=== PATIENT | female | born 1955 | race Caucasian/White ===

== ENCOUNTER → 2020-12-02 | Outpatient (CLI) | payer MEDICARE, OTHER ==
[2020-04-25 10:31] VITALS: BP 127/86
[~2020-12-02] MED LIST: FLUT16SP21 NS; FURO40TA4 PO; HYDR25TA PO; NIFE30TA15 PO; PANT40TA6 PO; POTA20TA4 PO; QUIN20TA17 PO
--- NOTE | 2020-12-02 15:50 | RAD ---
EXAM: XR SHOULDER_RIGHT 2+ VIEWS 12/02/2020 3:31 PM CLINICAL INDICATION: Right shoulder pain COMPARISON: None TECHNIQUE: 3 views of the right shoulder FINDINGS: No acute fracture. Alignment is normal. There is mild acromioclavicular degenerative joint disease. Chronic bony changes at the greater tuberosity suggests chronic rotator cuff pathology. The re is very mild glenohumeral degenerative joint disease with tiny humeral head osteophyte. Subacromia l space is maintained. No soft tissue calcifications. IMPRESSION: 1. No acute osseous abnormality. 2. Mild acromioclavicular and glenohumeral osteoarthrosis. 3. Bony changes in the greater tuberosity suggesting chronic rotator cuff pathology. Electronically signed by: Martina Ramos MD (12/02/2020 3:47 PM) [id number]
== END ==
LOC: RAD 15:23
PROVIDERS: ATTEND Nurse Practitioner Family
DX: M19.011 Primary osteoarthritis, right shoulder (principal)
CPT/HCPCS: 73030

== ENCOUNTER → 2020-12-17 | Outpatient (CLI) | payer OTHER ==
[2020-04-25 10:31] VITALS: BP 127/86
--- NOTE | 2020-12-17 13:42 | RAD ---
EXAM: Cervical spine, 3 views; thoracic spine, 4 views; lumbar spine, 3 views. HISTORY: Pain. COMPARISON: None. FINDINGS: Cervical spine: 3 views of the cervical spine are obtained. There is mild cervical kyphosis. There is 3 mm anterolisthesis of C4 on C5. There is degenerative endplate remodeling with disc space narrowin g and osteophytosis primarily at C5-C6 and C6-C7. There is multilevel facet arthropathy. There is no fracture. Thoracic spine: 4 views of the thoracic spine are obtained. There is multilevel endplate remodeling a nd anterior predominant spurring. There is no significant listhesis. There is no fracture. There are incidental cholecystectomy clips. There is an incidental left shoulder arthroplasty. Lumbar spine: 3 views of the lumbar spine are obtained. There is grade 1 anterolisthesis of L3 on L4, measuring 3 mm. There is grade 1 anterolisthesis of L4 on L5, measuring 5 mm. There is grade 1 anter olisthesis of L5 on S1, measuring 5 mm. There is multilevel endplate remodeling, primarily at L2-L3. There is disc space narrowing predominant L2-L3, L3-L4 and L5-S1. There is facet arthropathy predomin antly the lower lumbar levels. IMPRESSION: 1. Multilevel degenerative change throughout the spine, described in detail above. 2. Cervical kyphosis and mild anterolisthesis of C4 on C5, L3 on L4 and L4 on L5, and L5 on S1. 3. No acute osseous finding. Electronically signed by: Milvia Anglin MD (12/17/2020 1:39 PM) [id number]
== END ==
LOC: RAD 12:20
PROVIDERS: ATTEND Family Medicine
DX: M47.812 Spondylosis without myelopathy or radiculopathy, cervical region (principal); M47.816 Spondylosis without myelopathy or radiculopathy, lumbar region; M43.12 Spondylolisthesis, cervical region; M43.17 Spondylolisthesis, lumbosacral region; M25.78 Osteophyte, vertebrae; Z90.49 Acquired absence of other specified parts of digestive tract
CPT/HCPCS: 72040; 72072; 72100

== ENCOUNTER → 2021-11-21 | Day surgery (SDC) | payer OTHER ==
[~2021-11-21] MED LIST changes: +ACETAMINOPHEN 500 MG TABLET PO PRN; +BALANCED SALT IRRIG SOLN NO.2 500 ML IO ONE; +BENZONATATE 100 MG CAPSULE. PO PRN; +BRIMONIDINE 0.2% OPHTH SOLUTION 5ML BOTTLE. OS ONE; +CEFUROXIME OPHTH 4 MG/0.4 ML SYRINGE. OS ONE; +CHONDROIT-SOD-HYALURONATE KIT. OS ONE; +IBUPROFEN 200 MG TABLET PO PRN; +IPRATRPIUM/ALBUTEROL 0.5/2.5MG 3 ML NEBU. NEB PRN; +IV RINGERS SOLUTION,LACTATED 1,000 ML IV SCH; +LIDO/EPI IN BSS OPHTH 2.7 ML SYRINGE. OS ONE; +LIDOCAINE 2% JELLY 6ML IN APPLICATOR. ONE; +MIDAZOLAM HCL PF 2 MG/2 ML VIAL. ONE; +ONDANSETRON PF 4 MG/2 ML VIAL. IV PRN; +PHENYLEPHRINE 10% OPHTH SOLUTION 5ML BOTTLE. OS PRN; +POTA-121 PO; -POTA20TA4 PO; +POVIDONE-IODINE 5% OPHTH SOLUTION 30ML BOTTLE. OS ONE; +POVIDONE-IODINE 5% OPHTH SOLUTION 30ML BOTTLE. OS PRN; +PROPARACAINE 0.5% OPHTH SOLUTION 15ML BOTTLE. OS ONE; +PROPARACAINE 0.5% OPHTH SOLUTION 15ML BOTTLE. OS PRN; +prednisoLONE ACETATE 1% OPHTH SUSPENSION 5ML BOTTLE. OS ONE
[2021-11-21] MEDS: PHENYLEPHRINE 2.5% OPHTH SOLUTION 2ML BOTTLE. OS SCH ×3 (06:49→07:14)
[2021-11-21] MEDS: KETOROLAC TROMETHAMINE 0.5% OPHTH SOLUTION BOTTLE. OS SCH ×2 (06:49→07:00)
[2021-11-21] MEDS: TROPICAMIDE 1% OPHTH SOLUTION 15ML BOTTLE. OS SCH ×3 (06:49→07:14)
[2021-11-21] MEDS: TOBRAMYCIN 0.3% OPHTH SOLUTION 5ML BOTTLE. OS SCH ×2 (06:49→07:00)
--- NOTE | 2021-11-21 07:49 | PDOC4 ---
SURGEON: Tre Cervantes MD Date of Procedure: 11/21/21 PREOP Diagnosis Visually significant cataract: Left Eye OS Pre-existing astigmatism: Left Eye OS POSTOP Diagnosis Same PROCEDURE: Phaco w/ posterior chamber IOL: Left Eye OS ANESTHESIA x Deep forniceal periocular 2% Lidocaine jelly Dedra/retro bulbar block with 2% Lidocaine with 0.5% Marcaine DESCRIPTION OF PROCEDURE The risks, benefits, and alternatives were discussed with the patient who elected to proceed. Informed consent was obtained in writing and placed in the chart After anesthetizing the eye topically, the patient was taken to the operating room, and the operative eye was prepped and draped in the usual sterile fashion for ocular surgery. A wire lid speculum was placed. A 1-mm clear corneal paracentesis incision was created with the side-port blade at a position three o'clock hours clockwise from the temporal cornea. Then, 1% non-preserved Lidocaine with epinephrine was injected into the anterior chamber followed by viscoelastic. Cotton-tipped applicators were used to stabilize the globe, and a 2.4 mm keratome was used to create a self-sealing incision in clear cornea at the temporal limbus. The Utrata forceps were used to create a continuous curvilinear capsulorrhexis. Balanced saline solution was injected via cannula beneath the capsulorrhexis edge to hydrodissect the lens nucleus and cortex from the lens capsule. The phacoemulsification handpiece and a chopping instrument were then used to remove the lens nucleus. The remaining epinuclear material and cortex were removed with the irrigation/aspiration handpiece. Viscoelastic was used to re-inflate the lens capsule, and the intraocular lens was injected directly into the capsular bag. The corneal wound edges were hydrated with balanced salt solution on a cannula and the irrigation/aspiration handpiece was used to extract the remaining viscoelastic. Cefuroxime 0.1mg/ml / Vigamox 0.5% was injected into the anterior chamber intracamerally. The wounds were inspected and found to be watertight at an appropriate intraocular pressure. Topical antibiotic drops were placed on the corneal surface. LRI: No If Yes, Number [] Duncan [] Length [] degrees Depth [] microns Incision Duncan: 180 Toric Lens Duncan [[id number]] Patch/shield with Maxitrol/Tobradex/Erythromycin ointment: Yes No Co-managed patients/postop examination stable for co-management with referring doctor. EBL EBL: None SPECIMANS COLLECTED Specimens Collected: None TRE CERVANTES MD November 21, 2021 07:49
[2021-11-21 08:00] VITALS: BP 152/68
== END | disposition home or self-care (01) ==
LOC: SURG 05:45
PROVIDERS: ATTEND Ophthalmology
DX: H25.12 Age-related nuclear cataract, left eye (principal); H52.202 Unspecified astigmatism, left eye; I11.0 Hypertensive heart disease with heart failure; I50.9 Heart failure, unspecified; F41.9 Anxiety disorder, unspecified; E78.00 Pure hypercholesterolemia, unspecified; K21.9 Gastro-esophageal reflux disease without esophagitis; Z72.89 Other problems related to lifestyle; M19.90 Unspecified osteoarthritis, unspecified site; Z90.49 Acquired absence of other specified parts of digestive tract; Z90.710 Acquired absence of both cervix and uterus; Z79.899 Other long term (current) drug therapy; Z98.890 Other specified postprocedural states
CPT/HCPCS: 66984; J2250; V2632